=== PATIENT | male | born 1930 | race Two or more races ===

== ENCOUNTER 2018-01-26 12:11 | Inpatient (IN) | payer OTHER, MEDICAID ==
[~2018-01-26] VITALS: Ht 180.3 cm; Wt 82.8 kg
[2018-01-26 12:53] LABS: BASOPHIL % 0.4 % (0-2)
[2018-01-26 12:54] LABS: RED CELL DISTRIBUTION WIDTH 15.5 % (11.5-14.5)
[2018-01-26 12:55] LABS: PLATELET COUNT 103 x10^3mcL (130-400)
[2018-01-26 13:15] LABS: ALBUMIN 3.4 g/dL (3.4-5.0); ALKALINE PHOSPHATASE 144 U/L (46-116); ALT/SGPT 17 U/L (16-63); AST/SGOT 10 U/L (15-37); BILIRUBIN TOTAL 0.94 mg/dL (0.20-1.00); CALCIUM 9.2 mg/dL (8.5-10.1); CARBON DIOXIDE 29.8 mmol/L (21-32); CHLORIDE SERUM 99 mmol/L (98-107); CREATININE SERUM 2.5 mg/dL (0.7-1.3); POTASSIUM SERUM 4.6 mmol/L (3.5-5.1); SODIUM SERUM 138 mmol/L (136-145); TOTAL PROTEIN, SERUM 6.6 g/dL (6.4-8.2)
[2018-01-26 13:17] LABS: GLUCOSE SERUM 519 mg/dL (74-106)
[2018-01-26 13:19] LABS: CK-MB 0.7 ng/mL (0-3.6)
[2018-01-26] MEDS ORDERED: POTASSIUM CHLO10 MEQ PO (14:19)
[2018-01-26] MEDS ORDERED: FUROSEMIDE40 MG PO (14:19)
[2018-01-26] MEDS ORDERED: GOOD SENSE OMEP20 MG PO (14:19)
[2018-01-26] MEDS ORDERED: LISINOPRIL10 MG PO (14:19)
[2018-01-26] MEDS ORDERED: GLYBURIDE2.5 MG PO (14:19)
[2018-01-26] MEDS ORDERED: CARDURA2 MG PO (14:20)
[2018-01-26] MEDS ORDERED: FERROUS SULFAT325 M2 PO (14:20)
[2018-01-26] MEDS ORDERED: NATURE'S BLEND F1 MG PO (14:20)
[2018-01-26] MEDS ORDERED: CARVEDILOL3.125 M1 PO (14:20)
[2018-01-26] MEDS ORDERED: ALLOPURINOL100 MG PO (14:21)
[2018-01-26] MEDS ORDERED: PAXIL10 MG PO (14:21)
[2018-01-26] MEDS ORDERED: SIMVASTATIN20 M1 PO (14:21)
[2018-01-26 14:54] VITALS: BP 145/68
[2018-01-26 15:03] VITALS: Ht 180.3 cm; Wt 82.8 kg
[2018-01-26 16:00] LABS: PHOSPHOROUS 3.6 mg/dL (2.5-4.9)
[2018-01-26 16:01] LABS: CHOLESTEROL/HDL RATIO 4.8
[2018-01-26 16:07] LABS: T3 TOTAL 1.05 ng/mL
[2018-01-26 16:28] LABS: FREE T4 1.6 ng/dL (0.76-1.46); FREE THYROXINE INDEX 3.7 ug/dL (1.4-4.5); T4(THYROXINE) 9.8 ug/dL (4.7-13.3)
[2018-01-26 16:39] VITALS: BP 145/68
[2018-01-26 17:27] LABS: microscopic required? NO
[2018-01-26 17:35] LABS: urine erythrocyte NEGATIVE (NEGATIVE)
[2018-01-26 18:00] VITALS: BP 141/55
[2018-01-26] MEDS ORDERED: SYSTANE LIQUID15 ML OU (18:10)
[2018-01-26 20:14] VITALS: BP 149/68
[2018-01-26 21:18] VITALS: BP 142/73
[2018-01-27 05:20] VITALS: BP 134/62
[2018-01-27 05:56] LABS: CALCIUM 9.2 mg/dL (8.5-10.1); CARBON DIOXIDE 27.3 mmol/L (21-32); CHLORIDE SERUM 114 mmol/L (98-107); CREATININE SERUM 1.7 mg/dL (0.7-1.3); GLUCOSE SERUM 164 mg/dL (74-106); POTASSIUM SERUM 4.8 mmol/L (3.5-5.1); SODIUM SERUM 139 mmol/L (136-145)
[2018-01-27 07:03] LABS: BASOPHIL % 0 % (0-2); PLATELET COUNT 108 x10^3mcL (130-400); RED CELL DISTRIBUTION WIDTH 15.8 % (11.5-14.5)
[2018-01-27 08:17] VITALS: BP 142/55
[2018-01-27 12:57] VITALS: BP 134/56
[2018-01-27 16:41] VITALS: BP 134/53
[2018-01-27 21:01] VITALS: BP 126/50
[2018-01-28 04:55] VITALS: BP 141/66
[2018-01-28 06:09] LABS: CALCIUM 8.8 mg/dL (8.5-10.1); CARBON DIOXIDE 24.9 mmol/L (21-32); CHLORIDE SERUM 105 mmol/L (98-107); CREATININE SERUM 1.3 mg/dL (0.7-1.3); GLUCOSE SERUM 199 mg/dL (74-106); POTASSIUM SERUM 5.1 mmol/L (3.5-5.1); SODIUM SERUM 139 mmol/L (136-145)
[2018-01-28 07:09] LABS: BASOPHIL % 0 % (0-2); PLATELET COUNT 100 x10^3mcL (130-400); RED CELL DISTRIBUTION WIDTH 16.1 % (11.5-14.5)
[2018-01-28 08:31] VITALS: BP 140/61
[2018-01-28] MEDS ORDERED: LEVAQUIN750 MG PO (10:20)
[2018-01-28] MEDS ORDERED: LAC PO (10:21)
[2018-01-28 12:27] VITALS: BP 157/65
[2018-01-28] MEDS ORDERED: IPRATROPIUM BROM3 M2 HHN (12:29)
[2018-01-28] MEDS ORDERED: AERONEB GO NEB1 EACH MC (12:58)
[2018-01-28] MEDS ORDERED: FREESTYLE LITE1 EAC2 MC (13:01)
[2018-01-28] MEDS ORDERED: MEDDP PO (13:36)
[2018-01-28 13:53] VITALS: BP 140/61
== END 2018-01-28 15:37 | disposition home or self-care (01) | DRG 190 ==
LOC: ED 12:11 → DU 14:19
PROVIDERS: Emergency Medicine; Family Medicine
DX: J44.1 Chronic obstructive pulmonary disease with (acute) exacerbation (principal); J96.01 Acute respiratory failure with hypoxia; N17.0 Acute kidney failure with tubular necrosis; I50.43 Acute on chronic combined systolic (congestive) and diastolic (congestive) heart failure; E44.1 Mild protein-calorie malnutrition; I11.0 Hypertensive heart disease with heart failure; E11.65 Type 2 diabetes mellitus with hyperglycemia; E11.51 Type 2 diabetes mellitus with diabetic peripheral angiopathy without gangrene; F32.9 Major depressive disorder, single episode, unspecified; M10.9 Gout, unspecified; D69.6 Thrombocytopenia, unspecified; E78.1 Pure hyperglyceridemia; K21.9 Gastro-esophageal reflux disease without esophagitis; N40.0 Benign prostatic hyperplasia without lower urinary tract symptoms; Z95.2 Presence of prosthetic heart valve; Z68.25 Body mass index [BMI] 25.0-25.9, adult; Z79.84 Long term (current) use of oral hypoglycemic drugs
CPT/HCPCS: 36600; 82962; 83880; 84439; 94150; 97110-GP; J1644; J1815; J1956; J2920; J2930; J7030; J7620; J7626; J7644; Q0092